=== PATIENT | male | born 1950 | race African-American/Black ===

== ENCOUNTER 2016-08-22 19:54 | Emergency (ER) | payer OTHER ==
[~2016-08-22] VITALS: Ht 200.7 cm; Wt 109.8 kg
--- NOTE | 2016-08-22 19:56 | ED.ADGEN ---
Adult General Chief Complaint Chief Complaint " I got chest pain" HPI HPI Patient is a 65 year old male who presents with above hx and complaints. Pt. reports onset of chest pain aprox. 2 hours ago... pain has been constant. Rated 8/10, however now only 1 to 2 out ten. Some increase with movement, cough. Pt. Left sided. Pt. has hx CADz with hx two RI's. Pt. normally follows [facility]. Pt. does smoke, has HTN and high Cholesterol. Pt. ` states he had a rapid heart rate tonight.. Pt. reports some time he forgets to refill and take his meds. Review of Systems Review of Systems Constitutional: Denies fever or chills [] Eyes: Denies change in visual acuity, redness, or eye pain [] HENT: Denies nasal congestion or sore throat [] Respiratory: Denies cough or shortness of breath [] Cardiovascular: No additional information not addressed in HPI [] GI: Denies abdominal pain, nausea, vomiting, bloody stools or diarrhea [] : Denies dysuria or hematuria [] Musculoskeletal: Denies back pain or joint pain [] Integument: Denies rash or skin lesions [] Neurologic: Denies headache, focal weakness or sensory changes [] Endocrine: Denies polyuria or polydipsia [] Family History Family History HTN, CADz Current Medications Current Medications Current Medications Medications (Trade) Dose Ordered Sig/Ananth Start Time Stop Time Status Last Admin Dose Admin Aspirin (Children'S Aspirin) 324 mg 1X ONCE 08/22/16 20:00 08/22/16 22:44 DC Enoxaparin Sodium (Lovenox 100mg Syringe) 100 mg STK-MED ONCE 08/22/16 20:57 08/22/16 22:44 DC Lactated Ringer's (Iv Lactated Ringers) 1,000 ml @ As Directed STK-MED ONCE 08/22/16 20:57 08/22/16 22:44 DC Magnesium Hydroxide (Milk Of Magnesia) 2,400 mg 1X ONCE 08/22/16 22:30 08/22/16 22:44 DC Magnesium Hydroxide 2400 mg 2,400 mg STK-MED ONCE 08/22/16 22:28 08/22/16 22:29 DC Allergies Allergies No know drug. Physical Exam Physical Exam Constitutional: mild distress, non-toxic appearance. [] HENT: Normocephalic, atraumatic, bilateral external ears normal, oropharynx moist, no oral exudates, nose normal. [] Eyes: PERRLA, EOMI, conjunctiva normal, no discharge. [] Neck: Normal range of motion, no tenderness, supple, no stridor. [] Cardiovascular:Tachycardia Heart rate regular rhythm, no murmur , PMI to Lt. Lungs & Thorax: Bilateral breath sounds equal at apexes with scattered wheezes on auscultation [] Abdomen: Bowel sounds normal, soft, mild epigastric tenderness, no masses, no pulsatile masses. [] Refuses rectal at this time. Skin: Warm, dry, no erythema, no rash. [] Back: No tenderness, no CVA tenderness. [] Extremities: No tenderness, no cyanosis, no clubbing, ROM intact, no edema. Arthritic changes. No cording noted Neurologic: Alert and oriented X 3, normal motor function, normal sensory function, no focal deficits noted. [] Psychologic: Affect anxious, judgement normal, mood normal. [] Current Patient Data Vital Signs Vital Signs Date Time Temp Pulse Resp B/P Pulse Ox O2 Delivery O2 Flow Rate FiO2 08/22/16 22:25 86 20 150/93 97 Room Air 08/22/16 19:55 97.7 Lab Results Laboratory Tests Test 08/22/16 20:30 08/22/16 20:50 White Blood Count 6.3x10^3/uL (4.0-11.0) Red Blood Count 5.27x10^6/uL (4.30-5.70) Hemoglobin 14.7g/dL (13.0-17.5) Hematocrit 45.1% (39.0-53.0) Mean Corpuscular Volume 86fL (79-100) Mean Corpuscular Hemoglobin 28pg (25-35) Mean Corpuscular Hemoglobin Concent 33g/dL (31-37) Red Cell Distribution Width 14.8% (11.5-14.5) H Platelet Count 178x10^3/uL (140-400) Neutrophils (%) (Auto) 61% (31-73) Lymphocytes (%) (Auto) 22% (24-48) L Monocytes (%) (Auto) 12% (0-9) H Eosinophils (%) (Auto) 4% (0-3) H Basophils (%) (Auto) 1% (0-3) Neutrophils # (Auto) 3.8x10^3uL (1.8-7.7) Lymphocytes # (Auto) 1.4x10^3/uL (1.0-4.8) Monocytes # (Auto) 0.8x10^3/uL (0.0-1.1) Eosinophils # (Auto) 0.3x10^3/uL (0.0-0.7) Basophils # (Auto) 0.1x10^3/uL (0.0-0.2) Prothrombin Time 12.4SEC (9.4-11.4) H Prothrombin Time INR 1.2 (0.9-1.1) H PTT 25SEC (23-33) D-Dimer (Brittney) 0.45mg/L (0.00-0.50) Sodium Level 134mmol/L (136-145) L Potassium Level 3.5mmol/L (3.5-5.1) Chloride Level 97mmol/L (98-107) L Carbon Dioxide Level 28mmol/L (21-32) Anion Gap 9 (6-14) Blood Urea Nitrogen 24mg/dL (8-26) Creatinine 1.3mg/dL (0.7-1.3) Estimated GFR (Cockcroft-Gault) 55.8 Glucose Level 341mg/dL (70-99) H Calcium Level 10.2mg/dL (8.5-10.1) H Magnesium Level 1.1mg/dL (1.8-2.4) L Total Bilirubin 1.1mg/dL (0.2-1.0) H Direct Bilirubin 0.7mg/dL (0.0-0.2) H Aspartate Amino Transferase (AST) 74U/L (15-37) H Alanine Aminotransferase (ALT) 175U/L (16-63) H Alkaline Phosphatase 110U/L (46-116) Creatine Kinase 72U/L (39-308) Creatine Kinase MB (Mass) 0.8ng/mL (0.0-3.6) Creatine Kinase MB Relative Index 1.1% (0-4) Troponin I Quantitative < 0.017ng/mL (0-0.055) AB-Uwi-A-Type Natriuretic Peptide 34pg/mL (0-124) Total Protein 8.1g/dL (6.4-8.2) Albumin 3.1g/dL (3.4-5.0) L Lipase 625U/L (73-393) H Urine Collection Type Unknown Urine Color Guerline Urine Clarity Clear Urine pH 5.5 Urine Specific [place] 1.010 Urine Protein Neg (NEG-TRACE) Urine Glucose (UA) >=1000mg/dL (NEG) Urine Ketones (Stick) Tracemg/dL (NEG) Urine Blood Trace (NEG) Urine Nitrite Neg (NEG) Urine Bilirubin Neg (NEG) Urine Urobilinogen Dipstick 2mg/dL (0.2 mg/dL) Urine Leukocyte Esterase Neg (NEG) Urine RBC Occ/HPF (0-2) Urine WBC Occ/HPF (0-4) Urine Squamous Epithelial Cells Occ/LPF Urine Bacteria 0/HPF (0-FEW) Urine Hyaline Casts Occ/HPF Urine Opiates Screen Neg (NEG) Urine Methadone Screen Neg (NEG) Urine Barbiturates Neg (NEG) Urine Phencyclidine Screen Neg (NEG) Urine Amphetamine/Methamphetamine Neg (NEG) Urine Benzodiazepines Screen Neg (NEG) Urine Cocaine Screen Neg (NEG) Urine Cannabinoids Screen Neg (NEG) Urine Ethyl Alcohol Neg (NEG) EKG EKG My interpretation EKG shows a sinus tachycardia 2. There is leftward axis. No findings acute STEMI of contralateral changes. [] Radiology/Procedures Radiology/Procedures My interpretation chest x-ray shows right hilar fullness. Tortuous aorta. No megaly. CO PD changes. [] Course & Med Decision Making Course & Med Decision Making Pertinent Labs and Imaging studies reviewed. (See chart for details). Pt. refused further work up at 2300 hrs. Begged pt. to reconsider his decision to leave before further evaluation. Pt. refuses admission for observation. Pt. Exhibits. UCAR capacity. States he will follow up with his primary at [place]. [] Final Impression Final Impression 1. . Chest pain [] 2. Hypertension 3. Diabetes 4. Hypo-magnesium 5. Elevated AST and ALT 6. Elevated lipase 7. Malnutrition albumin 3.1 8. History coronary artery disease 9. Tobacco and marijuana abuse 10. Right hilar fullness- etiology ? 11. Hx. of COPD Problems: Skip Disclaimer Dragon Disclaimer This electronic medical record was generated, in whole or in part, using a voice recognition dictation system. VERONIKA LIZ MD Aug 22, 2016 19:56
[2016-08-22] MEDS: ASPIRIN 81 MG TAB.CHEW PO ONE (20:00)
[2016-08-22] MEDS ORDERED: ENOXAPARIN ** NOTE DOSE ** SYRINGE SQ ONE ×2 (20:00→20:57)
[2016-08-22] MEDS ORDERED: IV RINGERS SOLUTION,LACTATED 1,000 ML IV SCH (20:00)
[2016-08-22 20:47] LABS: BASO # 0.1 x10^3/uL (0.0-0.2); BASO % 1 % (0-3); EOS # 0.3 x10^3/uL (0.0-0.7); EOS % 4 % (0-3); HEMATOCRIT 45.1 % (39.0-53.0); HEMOGLOBIN 14.7 g/dL (13.0-17.5); LYMPH # 1.4 x10^3/uL (1.0-4.8); LYMPH % 22 % (24-48); MEAN CORPUSCULAR HEMOGLOBIN 28 pg (25-35); MEAN CORPUSCULAR HGB CONC 33 g/dL (31-37); MEAN CORPUSCULAR VOLUME 86 fL (79-100); MONO # 0.8 x10^3/uL (0.0-1.1); MONO % 12 % (0-9); NEUT # 3.8 x10^3uL (1.8-7.7); NEUT % 61 % (31-73); PLATELET COUNT 178 x10^3/uL (140-400); RED BLOOD COUNT 5.27 x10^6/uL (4.30-5.70); RED CELL DISTRIBUTION WIDTH 14.8 % (11.5-14.5); WHITE BLOOD COUNT 6.3 x10^3/uL (4.0-11.0)
[2016-08-22] MEDS ORDERED: IV RINGERS SOLUTION,LACTATED 1,000 ML IV ONE (20:57)
[2016-08-22 21:26] LABS: ALBUMIN 3.1 g/dL (3.4-5.0); CALCIUM 10.2 mg/dL (8.5-10.1); CREATININE 1.3 mg/dL (0.7-1.3); GFR 55.8; MAGNESIUM 1.1 mg/dL (1.8-2.4); POTASSIUM 3.5 mmol/L (3.5-5.1); TOTAL BILIRUBIN 1.1 mg/dL (0.2-1.0); TOTAL PROTEIN 8.1 g/dL (6.4-8.2)
[2016-08-22 21:28] LABS: BARBITURATES NEG (NEG); BENZODIAZEPINES NEG (NEG); CANNABINOIDS NEG (NEG); COCAINE NEG (NEG); METHADONE NEG (NEG); OPIATES NEG (NEG); PHENCYCLIDINE NEG (NEG)
[2016-08-22 21:29] LABS: AMPHETAMINE/METHAMPHETAMINE NEG (NEG)
[2016-08-22 21:41] LABS: DIRECT BILIRUBIN 0.7 mg/dL (0.0-0.2)
[2016-08-22 21:56] LABS: BACTERIA,URINE 0 /HPF (0-FEW); BILIRUBIN,URINE NEG (NEG); CLARITY,URINE CLEAR; COLOR,URINE AMBER; GLUCOSE,URINE >=1000 mg/dL (NEG); HYALINE CASTS, URINE OCC /HPF; NITRITE,URINE NEG (NEG); RBC,URINE OCC /HPF (0-2); SQUAMOUS EPITHELIAL CELL,UR OCC /LPF; UROBILINOGEN,URINE 2 mg/dL (0.2 mg/dL); WBC,URINE OCC /HPF (0-4)
[2016-08-22] MEDS ORDERED: HYDR-79 PO (22:15)
[2016-08-22 22:25] VITALS: BP 150/93
[2016-08-22] MEDS ORDERED: MAGNESIUM HYDROXIDE 2,400 MG/30 ML ORAL.SUSP. ONE (22:28)
[2016-08-22] MEDS ORDERED: MAGNESIUM HYDROXIDE 2,400 MG/30 ML ORAL.SUSP. PO ONE (22:30)
--- NOTE | 2016-08-22 22:57 | EKG ---
[address] [address] Test Date: 2016-08-22 Test Time: 20:00:10 Pat Name: LIZA ALLEN Department: Room: Gender: M Client Experience Consultant: : [id number] Requested By: VERONIKA LIZ Order Number: [id number] Reading MD: Measurements Intervals [place] Rate: 102 P: 1 [place]: 194 QRS: 0 QRSD: 98 T: 52 QT: 354 QTc: 466 Interpretive Statements SINUS TACHYCARDIA LEFTWARD AXIS NO SPECIFIC ECG ABNORMALITIES RI6.01 Unconfirmed report No previous ECG available for comparison
--- NOTE | 2016-08-23 08:57 | RAD ---
2 view CXR: Clinical indications: Chest pain. Shortness of air today.. Findings: No acute lung infiltrate or pleural effusion or pulmonary edema or lung mass or pneumothorax is seen. Tortuosity of the thoracic aorta is seen. The heart size, pulmonary vasculature, mediastinum and both arias are otherwise unremarkable. The osseous structures appear intact. Impression: No acute radiographic abnormality is seen.
[2016-08-23 13:48] LABS: THYROID STIM HORMONE (TSH) 0.612 uIU/mL (0.358-3.740)
[2016-08-23 18:12] LABS: HEMOGLOBIN A1C 8.5 % (4.8-5.6)
== END 2016-08-22 22:30 | disposition home or self-care (01) ==
LOC: ER 19:55
DX: R07.89 Other chest pain (principal); I10 Essential (primary) hypertension; E11.9 Type 2 diabetes mellitus without complications; E83.42 Hypomagnesemia; R79.89 Other specified abnormal findings of blood chemistry; R74.8 Abnormal levels of other serum enzymes; E46 Unspecified protein-calorie malnutrition; I25.10 Atherosclerotic heart disease of native coronary artery without angina pectoris; E78.00 Pure hypercholesterolemia, unspecified; I25.2 Old myocardial infarction; J44.9 Chronic obstructive pulmonary disease, unspecified; F12.10 Cannabis abuse, uncomplicated; F17.200 Nicotine dependence, unspecified, uncomplicated
CPT/HCPCS: 36415; 71020; 80048; 80061; 80076; 80305; 81001; 82553; 83036; 83690; 83735; 83880; 84443; 84484; 85027; 85379; 85610; 85730; 93005; G0481; 99285-25